=== PATIENT | male | born 1995 | race African-American/Black ===

== ENCOUNTER 2017-01-24 00:16 | Emergency (ER) | payer OTHER ==
[~2017-01-24] VITALS: Ht 182.9 cm; Wt 81.7 kg
[2017-01-24] MEDS ORDERED: SLEEP (00:23)
[2017-01-24] MEDS ORDERED: ANTIDEPRESSANT (00:23)
[2017-01-24 03:34] VITALS: BP 93/40
== END 2017-01-24 03:37 | disposition home or self-care (01) ==
LOC: ER 00:16
DX: S90.122A Contusion of left lesser toe(s) without damage to nail, initial encounter (principal); S60.312A Abrasion of left thumb, initial encounter; F17.210 Nicotine dependence, cigarettes, uncomplicated; Z88.1 Allergy status to other antibiotic agents; Z88.8 Allergy status to other drugs, medicaments and biological substances; X58.XXXA Exposure to other specified factors, initial encounter; Y93.39 Activity, other involving climbing, rappelling and jumping off; Y92.89 Other specified places as the place of occurrence of the external cause; Y99.8 Other external cause status